=== PATIENT | female | born 1960 | race Caucasian/White ===

== ENCOUNTER 2023-08-15 15:51 | Emergency (ER) | payer OTHER ==
[~2023-08-15] VITALS: Ht 154.9 cm; Wt 50.0 kg
[2023-08-15 16:03] VITALS: TEMP 97.1
[2023-08-15 19:59] VITALS: BP 133/68; PULSE 78; RESP 18
== END 2023-08-15 20:15 | disposition home or self-care (01) ==
LOC: EMS 16:10
DX: H43.12 Vitreous hemorrhage, left eye (principal); E11.9 Type 2 diabetes mellitus without complications; I10 Essential (primary) hypertension; K21.9 Gastro-esophageal reflux disease without esophagitis
CPT/HCPCS: 99282; Z7502